=== PATIENT | male | born 1960 | race Caucasian/White ===

== ENCOUNTER 2017-08-10 07:28 | Day surgery (SDC) | payer OTHER ==
[~2017-08-10 07:28] MED LIST: Lactated Ringers 1,000 ML IV SCH
[2017-08-10] MEDS ORDERED: Propofol 200 MG/20 ML SDV ONE (07:55)
--- NOTE | 2017-08-10 08:43 | PCM.PREANE ---
Preanesthetic Assessment - Anesthesia/Transfusion/Family Hx Anesthesia History: Prior Anesthesia Without Reaction Family History of Anesthesia Reaction: No Transfusion History: No Prior Transfusion(s) Intubation History: Unknown - Review of Systems General: No Symptoms Pulmonary: No Symptoms Cardiovascular: No Symptoms Gastrointestinal: No Symptoms, Other (screening colonoscopy) Neurological: No Symptoms Other: Reports: None - Physical Assessment NPO Status Date: 08/08/17 NPO Status Time: 22:00 O2 Sat by Pulse Oximetry: 95 Respiratory Rate: 16 Vital Signs: Last Vital Signs Temp 36.1 C 08/10/17 07:45 Pulse 76 08/10/17 07:45 Resp 16 08/10/17 07:45 BP 134/71 08/10/17 07:45 Pulse Ox 95 08/10/17 07:45 Height: 1.91 m Weight: 158.757 kg ASA Class: 3 Mental Status: Alert & Oriented x3 Airway Class: Mallampati = 2 Dentition: Reports: Normal Dentition, Missing Tooth/Teeth (upper and lower ( multiple) both sides) Thyro-Mental Finger Breadths: 3 Mouth Opening Finger Breadths: 3 ROM/Head Extension: Full Lungs: Clear to Auscultation, Normal Respiratory Effort Cardiovascular: Regular Rate, Regular Rhythm - Lab Values: Laboratory Last Values POC Glucose 120 mg/dL (60-110) H 08/10/17 07:52 - Allergies Allergies/Adverse Reactions: Allergies Allergy/AdvReac Type Severity Reaction Status Date / Time No Known Allergies Allergy Verified 08/06/17 14:25 - Blood Blood Available: No - Anesthesia Plan Pre-Op Medication Ordered: None - Acknowledgements Anesthesia Type Planned: MAC Pt an Appropriate Candidate for the Planned Anesthesia: Yes Alternatives and Risks of Anesthesia Discussed w Pt/Guardian: Yes Pt/Guardian Understands and Agrees with Anesthesia Plan: Yes PreAnesthesia Questionnaire HEENT History: Reports: Other (See Below) Other HEENT History: wears glasses Cardiovascular History: Reports: High Cholesterol, Hypertension Respiratory History: Reports: Sleep Apnea Other Respiratory History: uses CPAP Musculoskeletal History: Reports: Arthritis Endocrine/Metabolic History: Reports: Diabetes, Type II, Obesity/BMI 30+ ( morbid obesity BMI 43.7) Dermatologic History: Reports: Other (See Below) Other Dermatologic History: dermatitis to hands - Past Surgical History Head Surgeries/Procedures: Reports: None HEENT Surgical History: Reports: Adenoidectomy, Tonsillectomy - SUBSTANCE USE Smoking Status *Q: Former Smoker Tobacco Use Within Last Twelve Months: No Recreational Drug Use History: No - HOME MEDS Home Medications: Home Meds Chlorthalidone 25 mg PO DAILY 08/06/17 [History] Lisinopril 20 mg PO DAILY 08/06/17 [History] Simvastatin 40 mg PO BEDTIME 08/06/17 [History] metFORMIN HCl [Metformin HCl] 1,000 mg PO BID 08/06/17 [History] - CURRENT (IN HOUSE) MEDS Current Meds: Current Medications Lactated Ringer's (Ringers, Lactated) 1,000 mls @ 125 mls/hr IV ASDIRECTED ANGELIC Last Admin: 08/10/17 08:03 Dose: 125 mls/hr Discontinued Medications Lidocaine HCl (Xylocaine-Mpf 1%) Confirm Administered Dose 5 ml .ROUTE .STK-MED ONE Stop: 08/10/17 07:58 Propofol (Diprivan 20 Ml) Confirm Administered Dose 400 mg .ROUTE .STK-MED ONE Stop: 08/10/17 07:56
--- NOTE | 2017-08-10 10:34 | PCM.OPNOTE ---
- General Post-Op/Procedure Note Date of Surgery/Procedure: 08/10/17 Operative Procedure(s): colonoscopy w snare polypectomy Findings: see dict [id number] Pre Op Diagnosis: scrn colonoscopy Post-Op Diagnosis: polyps and diverticulosis Anesthesia Technique: Moderate Sedation Primary Surgeon: Angel Garcia Pathology: 2mm sessile polyp at dist 1.4m when went in and 1.5 cm sessile polyp at dist 20 cm when went out Complications: None Condition: Good
--- NOTE | 2017-08-10 11:00 | PCM48HPAN ---
Post Anesthesia Note - EVALUATION WITHIN 48HRS OF ANESTHETIC Vital Signs in Normal Range: Yes Patient Participated in Evaluation: Yes Respiratory Function Stable: Yes Airway Patent: Yes Cardiovascular Function Stable: Yes Hydration Status Stable: Yes Pain Control Satisfactory: Yes Nausea and Vomiting Control Satisfactory: Yes Mental Status Recovered: Yes Resp Rate: 22 - COMMENTS/OBSERVATIONS Free Text/Narrative:: no anesthesia problems
--- NOTE | 2017-08-10 12:28 | OR ---
SURGEON: Angel Garcia MD DATE OF PROCEDURE: 08/10/2017 PREOPERATIVE DIAGNOSIS: Screening colonoscopy. POSTOPERATIVE DIAGNOSES: 1. Polyps. 2. Diverticulosis. PROCEDURE PERFORMED: Colonoscopy. The patient was taken to the endoscopy room. A time out was called, patient identified, and procedure identified. Diprivan was then administrated. Patient went from awake to sleep, hearing doctor talking or door closing is normal. Perineum inspection and digital examination were then performed. A well- lubricated colonoscope was gently inserted through the rectum, advanced past the rectosigmoid junction, the descending colon, splenic flexure, transverse colon, hepatic flexure, ascending colon, arrived to the cecum. Cecum was identified as dictated in the finding. Then the scope was carefully withdrawn while attention was paid to the mucosal surface for any abnormality. Air will be sucked out during the scope withdrawal. At the rectum, retroflexed to examine any rectal diseases, fistula or hemorrhoids. During mucosal examination, abnormality or polyp encountered. Using snare equipment, the abnormality or the polyp was then snared off using electrocautery. The Patient tolerated procedure well. There were no intraoperative complications, and Dr. Garcia was present through out the whole procedure. FINDINGS: 1. The patient is easily sedated with FRONT END UI DEVELOPER and Diprivan. The patient is soundly snoring. 2. Bowel prep is left to be desirable. Large amount of opaque, semi opaque liquid stool. There is no semi-formed stool and required constant irrigation. This compromised the study because of the bowel prep. The patient's colon is rather straight forward. Cecum indicated by ileocecal fold, one-to-one indentation, light emittance, and appendiceal orifice. Mucosa examined upon scope pulling out with constant irrigation because of the poor bowel prep and this is a compromised study. The patient has a polyp at distant 1.4 meter when the scope go in and somewhat larger polyp, sessile at distance 20 cm when the scope come out and second was removed with snare polypectomy. The patient also has moderate diverticulosis on the left colon and no signs or symptoms of diverticulitis. No other mass, growth, inflammation, stricture, ulceration, bleeding, or AV malformation; none of those. The patient has some internal hemorrhoids. No external hemorrhoids. The patient would benefit from repeat colonoscopy 1.5 years from today 18 months because of the polyp and as well as the bowel prep. The patient is to do a better of bowel prep. We will address this on the followup visit. KARTIK RIGGS /[id number]
== END 2017-08-10 11:00 | disposition home or self-care (01) ==
LOC: MW.SDS 07:28
PROVIDERS: ATTEND Surgery
DX: Z12.11 Encounter for screening for malignant neoplasm of colon (principal); K64.8 Other hemorrhoids; D12.2 Benign neoplasm of ascending colon; D12.6 Benign neoplasm of colon, unspecified; K57.30 Diverticulosis of large intestine without perforation or abscess without bleeding; E78.00 Pure hypercholesterolemia, unspecified; I10 Essential (primary) hypertension; G47.30 Sleep apnea, unspecified; E11.9 Type 2 diabetes mellitus without complications; M19.90 Unspecified osteoarthritis, unspecified site; E66.01 Morbid (severe) obesity due to excess calories; Z68.41 Body mass index [BMI] 40.0-44.9, adult; Z79.84 Long term (current) use of oral hypoglycemic drugs; Z79.899 Other long term (current) drug therapy; Z87.891 Personal history of nicotine dependence; Z98.890 Other specified postprocedural states
CPT/HCPCS: 45385; 82962; J7120; 00812; 88305; J2704

== ENCOUNTER 2017-11-12 03:44 | Emergency (ER) | payer OTHER ==
[2017-11-12] MEDS ORDERED: Sodium Chloride 0.9% 10 ML Syringe FLUSH PRN (04:02)
[2017-11-12] MEDS ORDERED: Sodium Chloride 0.9% 2.5 ML Syringe FLUSH PRN ×2 (04:02)
--- NOTE | 2017-11-12 04:06 | EDM.PDOC ---
ED HPI GENERAL MEDICAL PROBLEM - General Chief Complaint: General Stated Complaint: FELL OFF WORK TRUCK Time Seen by Provider: 11/12/17 03:48 Source of Information: Reports: Patient History Limitations: Reports: Altered Mental Status - History of Present Illness INITIAL COMMENTS - FREE TEXT/NARRATIVE: HISTORY AND PHYSICAL: History of present illness: 57-year-old male brought to emergency department after fall at work with suspected loss of consciousness with past medical history of proximal A. fib on Eliquis, hypertension, and type 2 diabetes Patient states that the last thing he remembers was checking the oil in his vehicle. He does not know what actually happened to him. His coworker states that he received a text from him as well as a call so proceeded to check on him. When he found him he was standing between 2 vehicles holding himself up. He noted that patient was confused. Patient doesn't remember falling but states he was feeling his normal self prior to event. Denies any chest pain preceding or after the event. Currently he has pain in the back of his head, left elbow, left knee, and right shoulder. Patient believes that he may have been stepping into his vehicle when he lost his loss balance and fell backwards. Patient denies ever getting on his vehicle or possibility from falling from a significant height. Patient states he was in the hospital 2 months ago in [place]. He was initially unable to remember what he was there for. Approximately 15 minutes after asking states that he was there fir A. fib and placed on a blood thinner. He does have his medications on his phone and he is on Eliquis, Metoprolol, Lasix, and Metformin. Patient initially was only oriented to person but not place or time. He does not remember the event or how long he could've been unconscious. Currently denies any chest pain, palpitations, shortness of breath, or focal neurologic deficits. Initial neurological exam is benign, cranial nerves II through XII are intact, no facial drooping, no decrease in strength in all muscle groups, no sensory deficits Alert and oriented 1 GCS-14 Initial bedside blood sugar 117 Initial EKG normal sinus rhythm with a rate of [address] changes Initial exam shows a small superficial abrasion above the right eye, small superficial abrasion above the left elbow, there is a 5 x 3 cm abrasion to the left medial aspect of the knee, there is a 1 cm x 2 cm abrasion to the left occiput with surrounding swelling. Patient is complaining of pain in his right shoulder, no decreased range of motion, strength, or sensation. Also having some pain in the left elbow at abrasion site and left knee and abrasion site 0442- CBC, CMP, INR, Lipase, Troponin unremarkable. D-dimer elevated to 0.99. Secondary leg pain CTA ordered. 0530- Memory improved remembers slipping when trying to get into his truck and scraping his left knee against the step as he fell backward. Does think he lost conciousness 0550- [facility] radiologist called to inform that patient has a 4 mm subdural hematoma in right parafacine as well as a subarachnoid hemorrhage. 0550- Neuro monitoring as per nursing normal, 0555- Dr. Cedillo, [facility], advised of patient and will accept. Annette only able to accept Trauma, [place], and stroke secondary to hospital at [facility]. Review of systems: As per history of present illness and below otherwise all systems reviewed and negative. Past medical history: As per history of present illness and as reviewed below otherwise noncontributory. Surgical history: As per history of present illness and as reviewed below otherwise noncontributory. Social history: No reported history of drug or alcohol abuse. Family history: As per history of present illness and as reviewed below otherwise noncontributory. Physical exam: HEENT: See above for exam of head, normocephalic, pupils reactive, negative for conjunctival pallor or scleral icterus, mucous membranes moist, throat clear, neck supple, nontender, trachea midline. Lungs: Clear to auscultation, breath sounds equal bilaterally, chest nontender. Heart: S1S2, regular, negative for clicks, rubs, or JVD. Abdomen: Soft, nondistended, nontender. There is a reducible umbilical hernia. Negative for masses or hepatosplenomegaly. Negative for costovertebral tenderness. Pelvis: Stable nontender. Genitourinary: Deferred. Rectal: Deferred. Extremities: Atraumatic, negative for cords or calf pain. Neurovascular unremarkable. Neuro: Awake, alert, oriented. Cranial nerves II through XII unremarkable. Cerebellum unremarkable. Motor and sensory unremarkable throughout. Exam nonfocal. Diagnostics: CBC, CMP, troponin, INR, d-dimer, chest x-ray, EKG, CT head neck, right shoulder x-ray, left elbow x-ray, left knee x-ray Therapeutics: 1 L normal saline 1 Impression: Unwitnessed Fall with trauma to the head from a standing position Loss of consciousness Short-term memory loss Plan: Please see above CBC, CMP, troponin, INR were all unremarkable. CT head did reveal a right parafalcine subdural hematoma measuring up to 4 mm. There was also subdural blood layering along the left side of the tentorium as well as high left convexity subarachnoid hemorrhage. Dr. Cedillo, [facility], was advised of the patient and was also told that the patient is on blood thinner Eliquist for his proximal A. fib. As per above patient's memory did improve and at time of transfer patient's GCS was 15 and patient was alert and oriented 3. No neurologic deficits were noted on exam. head area Pain Score (Numeric/FACES): 5 - Related Data Allergies Allergy/AdvReac Type Severity Reaction Status Date / Time No Known Allergies Allergy Verified 11/12/17 03:57 Home Meds: Home Meds Simvastatin 40 mg PO BEDTIME 08/06/17 [History] metFORMIN HCl [Metformin HCl] 1,000 mg PO BID 08/06/17 [History] Apixaban [Eliquis] 5 mg PO BID 11/12/17 [History] Aspirin 81 mg PO DAILY 11/12/17 [History] Cholecalciferol (Vitamin D3) [D3-2000] 1 tab PO DAILY 11/12/17 [History] Furosemide [Lasix] 20 mg PO DAILY 11/12/17 [History] Magnesium Oxide 1 tab PO DAILY 11/12/17 [History] Metoprolol Tartrate 1 tab PO BID 11/12/17 [History] Past Medical History HEENT History: Reports: Other (See Below) Other HEENT History: wears glasses Cardiovascular History: Reports: High Cholesterol, Hypertension Respiratory History: Reports: Sleep Apnea Other Respiratory History: uses CPAP Musculoskeletal History: Reports: Arthritis Endocrine/Metabolic History: Reports: Diabetes, Type II, Obesity/BMI 30+ ( morbid obesity BMI 43.7) Dermatologic History: Reports: Other (See Below) Other Dermatologic History: dermatitis to hands - Past Surgical History Head Surgeries/Procedures: Reports: None HEENT Surgical History: Reports: Adenoidectomy, Tonsillectomy ED ROS GENERAL - Review of Systems Review Of Systems: ROS reveals no pertinent complaints other than HPI. ED EXAM, GENERAL - Physical Exam Exam: See Below Course - Vital Signs Last Recorded V/S: Last Vital Signs Temp 97 F 11/12/17 03:50 Pulse 72 11/12/17 03:50 Resp 18 11/12/17 03:50 BP 172/77 H 11/12/17 03:50 Pulse Ox 98 11/12/17 04:14 - Orders/Labs/Meds Orders: Active Orders 24 hr Category Date Time Status Cardiac Monitoring [RC] . DIRECTED Care 11/12/17 04:02 Active EKG Documentation Completion [RC] STAT Care 11/12/17 04:03 Active Oxygen Therapy [RC] ASDIRECTED Care 11/12/17 04:02 Active Pulse Oximetry [RC] ASDIRECTED Care 11/12/17 04:02 Active Cervical Spine wo Cont [CT] Stat Exams 11/12/17 04:06 Taken Chest 1V Frontal [CR] Stat Exams 11/12/17 04:02 Taken Chest w Cont [CT] Stat Exams 11/12/17 04:43 Taken Elbow 2V Lt [CR] Stat Exams 11/12/17 04:13 Taken Head wo Cont [CT] Stat Exams 11/12/17 04:06 Taken Knee 3V Lt [CR] Stat Exams 11/12/17 04:07 Taken Shoulder Comp Rt [CR] Stat Exams 11/12/17 04:07 Taken UA W/MICROSCOPIC [URIN] Stat Lab 11/12/17 04:03 Ordered Sodium Chloride 0.9% [Normal Saline] 1,000 ml Med 11/12/17 05:50 Ordered IV STAT Sodium Chloride 0.9% [Saline Flush] Med 11/12/17 04:02 Active 10 ml FLUSH ASDIRECTED PRN Sodium Chloride 0.9% [Saline Flush] Med 11/12/17 04:02 Active 2.5 ml FLUSH ASDIRECTED PRN Sodium Chloride 0.9% [Saline Flush] Med 11/12/17 04:02 Active 2.5 ml FLUSH ASDIRECTED PRN Saline Lock Insert [OM.PC] Stat Oth 11/12/17 04:02 Ordered Medication Orders Sodium Chloride (Normal Saline) 1,000 mls @ 999 mls/hr IV STAT ONE Stop: 11/12/17 06:50 Sodium Chloride (Saline Flush) 2.5 ml FLUSH ASDIRECTED PRN PRN Reason: Keep Vein Open Sodium Chloride (Saline Flush) 10 ml FLUSH ASDIRECTED PRN PRN Reason: Keep Vein Open Sodium Chloride (Saline Flush) 2.5 ml FLUSH ASDIRECTED PRN PRN Reason: Keep Vein Open Labs: Laboratory Tests 11/12/17 11/12/17 11/12/17 Range/Units 04:00 04:00 04:00 WBC 8.96 (4.0-11.0) K/uL RBC 4.59 (4.50-5.90) M/uL Hgb 13.8 (13.0-17.0) g/dL Hct 41.8 (38.0-50.0) % MCV 91.1 (80.0-98.0) fL MCH 30.1 (27.0-32.0) pg MCHC 33.0 (31.0-37.0) g/dL RDW Std Deviation 49.0 (28.0-62.0) fl RDW Coeff of Esther 15 (11.0-15.0) % Plt Count 251 (150-400) K/uL MPV 10.70 (7.40-12.00) fL Neut % (Auto) 74.0 (48.0-80.0) % Lymph % (Auto) 15.4 L (16.0-40.0) % [place] % (Auto) 8.8 (0.0-15.0) % Eos % (Auto) 1.6 (0.0-7.0) % Baso % (Auto) 0.2 (0.0-1.5) % Neut # (Auto) 6.6 H (1.4-5.7) K/uL Lymph # (Auto) 1.4 (0.6-2.4) K/uL [place] # (Auto) 0.8 (0.0-0.8) K/uL Eos # (Auto) 0.1 (0.0-0.7) K/uL Baso # (Auto) 0.0 (0.0-0.1) K/uL Nucleated RBC % 0.0 /100WBC Nucleated RBCs # 0 K/uL INR 1.01 D-Dimer, Quantitative 0.99 H (0.0-0.52) mg/LFEU Sodium 141 (136-148) mmol/L Potassium 3.9 (3.5-5.1) mmol/L Chloride 105 (98-107) mmol/L Carbon Dioxide 30.1 (21.0-32.0) mmol/L BUN 19 H (7.0-18.0) mg/dL Creatinine 1.2 (0.8-1.3) mg/dL Est Cr Clr Drug Dosing 81.17 mL/min Estimated GFR (MDRD) > 60.0 ml/min Glucose 122 H (74-106) mg/dL Calcium 8.5 (8.5-10.1) mg/dL Total Bilirubin 0.3 (0.2-1.0) mg/dL AST 34 (15-37) IU/L ALT 48 (14-63) IU/L Alkaline Phosphatase 65 (46-116) U/L Troponin I < 0.050 (0.000-0.056) ng/mL Total Protein 6.5 (6.4-8.2) g/dL Albumin 3.4 (3.4-5.0) g/dL Globulin 3.1 (2.0-3.5) g/dL Albumin/Globulin Ratio 1.1 L (1.3-2.8) Lipase 139 (73-393) U/L Meds: Medications Generic Name Dose Route Start Last Admin Trade Name Freq PRN Reason Stop Dose Admin Sodium Chloride 1,000 mls @ 999 mls/hr 11/12/17 05:50 Normal Saline IV 11/12/17 06:50 STAT ONE Sodium Chloride 2.5 ml 11/12/17 04:02 Saline Flush FLUSH ASDIRECTED PRN Keep Vein Open Sodium Chloride 10 ml 11/12/17 04:02 Saline Flush FLUSH ASDIRECTED PRN Keep Vein Open Sodium Chloride 2.5 ml 11/12/17 04:02 Saline Flush FLUSH ASDIRECTED PRN Keep Vein Open Discontinued Medications Generic Name Dose Route Start Last Admin Trade Name Freq PRN Reason Stop Dose Admin Iopamidol 50 ml 11/12/17 05:46 11/12/17 05:47 Isovue Multipack-370 (76%) IVPUSH 11/12/17 05:47 50 ml ONETIME STA Administration Departure - Departure Time of Disposition: 06:08 Disposition: DC/Tfer to Other 70 Condition: Fair Clinical Impression: Subarachnoid hemorrhage after traumatic injury without open intracranial wound , with prolonged loss of consciousness and return to pre-existing level of consciousness, Chronic anticoagulation Subdural hematoma, post-traumatic Qualifiers: Encounter type: initial encounter Loss of consciousness presence/duration: with LOC of unspecified duration Qualified Code(s): S06.5X9A - Traumatic subdural hemorrhage with loss of consciousness of unspecified duration, initial encounter - Discharge Information Referrals: PCP,None [Primary Care Provider] - Forms: ED Department Discharge - My Orders Last 24 Hours: My Active Orders 11/12/17 04:02 Cardiac Monitoring [RC] . DIRECTED Oxygen Therapy [RC] ASDIRECTED Pulse Oximetry [RC] ASDIRECTED Chest 1V Frontal [CR] Stat Sodium Chloride 0.9% [Saline Flush] 10 ml FLUSH ASDIRECTED PRN Sodium Chloride 0.9% [Saline Flush] 2.5 ml FLUSH ASDIRECTED PRN Sodium Chloride 0.9% [Saline Flush] 2.5 ml FLUSH ASDIRECTED PRN Saline Lock Insert [OM.PC] Stat 11/12/17 04:03 EKG Documentation Completion [RC] STAT UA W/MICROSCOPIC [URIN] Stat 11/12/17 04:06 Cervical Spine wo Cont [CT] Stat Head wo Cont [CT] Stat 11/12/17 04:07 Knee 3V Lt [CR] Stat Shoulder Comp Rt [CR] Stat 11/12/17 04:13 Elbow 2V Lt [CR] Stat 11/12/17 04:43 Chest w Cont [CT] Stat 11/12/17 05:50 Sodium Chloride 0.9% [Normal Saline] 1,000 ml IV STAT - Assessment/Plan Last 24 Hours: My Active Orders 11/12/17 04:02 Cardiac Monitoring [RC] . DIRECTED Oxygen Therapy [RC] ASDIRECTED Pulse Oximetry [RC] ASDIRECTED Chest 1V Frontal [CR] Stat Sodium Chloride 0.9% [Saline Flush] 10 ml FLUSH ASDIRECTED PRN Sodium Chloride 0.9% [Saline Flush] 2.5 ml FLUSH ASDIRECTED PRN Sodium Chloride 0.9% [Saline Flush] 2.5 ml FLUSH ASDIRECTED PRN Saline Lock Insert [OM.PC] Stat 11/12/17 04:03 EKG Documentation Completion [RC] STAT UA W/MICROSCOPIC [URIN] Stat 11/12/17 04:06 Cervical Spine wo Cont [CT] Stat Head wo Cont [CT] Stat 11/12/17 04:07 Knee 3V Lt [CR] Stat Shoulder Comp Rt [CR] Stat 11/12/17 04:13 Elbow 2V Lt [CR] Stat 11/12/17 04:43 Chest w Cont [CT] Stat 11/12/17 05:50 Sodium Chloride 0.9% [Normal Saline] 1,000 ml IV STAT
[2017-11-12 04:34] LABS: CHLORIDE,CL 105 mmol/L (98-107); SODIUM,NA 141 mmol/L (136-148)
[2017-11-12] MEDS ORDERED: Iopamidol 755 MG/ML 500 ML Multipack Bottle IVPUSH STA (05:46)
[2017-11-12] MEDS ORDERED: Sodium Chloride 0.9% 1,000 ML IV ONE (05:50)
[2017-11-12] MEDS ORDERED: HYDROmorphone 1 MG/ML Syringe IVPUSH ONE (06:53)
--- NOTE | 2017-11-12 19:16 | CR ---
EXAM DATE: 11/12/17 PATIENT'S AGE: 57 Patient: TIMOTHY VINCENT Facility: [place], [place] Site . Site : 1960 Study: XRay Chest [id number]/2/2018 5:25:55 AM Ordering Physician: Jt Chairez Final Report: INDICATION: trauma TECHNIQUE: Chest 1 view. COMPARISON: None. FINDINGS: Cardiovascular and mediastinum: Heart size and vasculature are normal in caliber and appearance. Mediastinum is within normal limits. Lungs and pleural space: Lungs are clear. No sign of infiltrate or mass. No sign of pleural effusion. No pneumothorax. Bones and soft tissues: No significant findings. IMPRESSION: Unremarkable chest. Dictated by: Lalo He MD @ 11/12/2017 05:30:35 (Electronic Signature) Report Signed by Proxy. [facility]
--- NOTE | 2017-11-12 19:17 | CR ---
EXAM DATE: 11/12/17 PATIENT'S AGE: 57 Patient: TIMOTHY VINCENT Facility: [place], [place] Site . Site : 1960 Study: XRay Shoulder Right [id number]/2/2018 5:26:19 AM Ordering Physician: Jt Chairez Final Report: INDICATION: Trauma TECHNIQUE: Three views right shoulder COMPARISON: None. FINDINGS: Bones: Alignment is normal. No fractures or bone lesions. Joint spaces: Degenerative changes AC joint. Soft tissues: Unremarkable. IMPRESSION: No evidence of acute trauma. Dictated by Lalo He MD @ 11/12/2017 5:35:04 AM Dictated by: Lalo He MD @ 11/12/2017 05:35:10 (Electronic Signature) Report Signed by Proxy. SHIMA
--- NOTE | 2017-11-12 19:17 | CR ---
EXAM DATE: 11/12/17 PATIENT'S AGE: 57 Patient: TIMOTHY VINCENT Facility: [place], [place] Site . Site : 1960 Study: XRay Extremity Left [id number]/2/2018 5:26:48 AM Ordering Physician: Jt Chairez Final Report: INDICATION: Trauma TECHNIQUE: Two views left elbow. COMPARISON: None FINDINGS: Bones: Alignment is normal. No fractures or bone lesions. Joint spaces: Unremarkable. Soft tissues: Soft tissue edematous changes posterior to the distal humerus. IMPRESSION: Soft tissue edematous changes posterior to the distal humerus. No fractures. Dictated by Lalo He MD @ 11/12/2017 5:37:40 AM Dictated by: Lalo He MD @ 11/12/2017 05:37:46 (Electronic Signature) Report Signed by Proxy. [facility]
--- NOTE | 2017-11-12 19:18 | CR ---
EXAM DATE: 11/12/17 PATIENT'S AGE: 57 Patient: TIMOTHY VINCENT Facility: [place], [place] Site . Site : 1960 Study: XRay Knee Left [id number]/2/2018 5:27:11 AM Ordering Physician: tJ Chairez Final Report: INDICATION: Trauma TECHNIQUE: Three views left knee COMPARISON: None FINDINGS: Bones: Alignment is normal. No fractures or bone lesions. Joint spaces: Unremarkable. Soft tissues: Areas of calcification/ossification adjacent to the proximal fibula. IMPRESSION: No evidence of acute trauma. Dictated by Lalo He MD @ 11/12/2017 5:36:35 AM Dictated by: Lalo He MD @ 11/12/2017 05:36:41 (Electronic Signature) Report Signed by Proxy. [facility]
--- NOTE | 2017-11-12 19:19 | CT ---
EXAM DATE: 11/12/17 PATIENT'S AGE: 57 Patient: TIMOTHY VINCENT Facility: [place], [place] Site . Site : 1960 Study: CT Head [id number]/2/2018 5:43:41 AM Ordering Physician: Jt Chairez Final Report: INDICATION: Brenda TECHNIQUE: CT head without contrast. COMPARISON: None FINDINGS: CSF spaces: Within normal limits for age. Brain parenchyma: Right parafalcine subdural hematoma measuring up to 4 millimeters. Left high convexity subarachnoid hemorrhage. Was also noted to layer on the left side of the tentorium. Skull base and calvarium: The visualized paranasal sinuses and mastoid air cells demonstrate no acute or significant findings. The visualized orbits are grossly unremarkable. No skull fractures. Right posterior parietal scalp hematoma. IMPRESSION: Right parafalcine subdural hematoma measuring up to 4 millimeters. Subdural blood layering along left side of the tentorium. High left convexity subarachnoid hemorrhage. Left posterior parietal scalp hematoma. Findings discussed on 11/12/2017 at 5:48 a.m. with . Dictated by Lalo He MD @ 11/12/2017 5:50:12 AM Dictated by: Lalo He MD @ 11/12/2017 05:50:16 (Electronic Signature) Report Signed by Proxy. [facility]
--- NOTE | 2017-11-12 19:20 | CT ---
EXAM DATE: 11/12/17 PATIENT'S AGE: 57 Patient: TIMOTHY VINCENT Facility: [place], [place] Site . Site : 1960 Study: CT Spine Cervical [id number]/2/2018 5:44:02 AM Ordering Physician: Jt Chairez Final Report: INDICATION: Trauma TECHNIQUE: CT cervical spine without contrast. COMPARISON: None FINDINGS: Vertebral alignment: Alignment is normal. Vertebrae: There are no fractures or suspicious bony lesions. Discs and facet joints: Disc spaces and facets are within normal limits. Extraspinal findings: Prevertebral soft tissues, visualized airway, and visualized lungs are unremarkable. IMPRESSION: No evidence of acute cervical spine trauma Dictated by Lalo He MD @ 11/12/2017 5:51:58 AM Dictated by: Lalo He MD @ 11/12/2017 05:52:11 (Electronic Signature) Report Signed by Proxy. SHIMA
--- NOTE | 2017-11-12 19:21 | CT ---
EXAM DATE: 11/12/17 PATIENT'S AGE: 57 Patient: TIMOTHY VINCENT Facility: [place], [place] Site . Site : 1960 Study: CT Chest [id number]/2/2018 5:48:38 AM Ordering Physician: Jt Chairez Final Report: INDICATION: Trauma, positive D-dimer TECHNIQUE: CT chest was acquired with IV contrast. 50 cc Isovue 370 COMPARISON: FINDINGS: Cardiovascular structures: Heart size is normal. Thoracic aorta and main pulmonary artery are normal in caliber. Mediastinum and antonia: No mass or adenopathy. Lungs: Patchy left lower lobe opacities. Serial the findings may represent atelectasis, in the right clinical setting pneumonia may be considered. Pleura and pericardium: No effusions. Chest wall and axilla: No mass or adenopathy. Bones: No significant findings. Upper abdomen: Unremarkable. IMPRESSION: No evidence of acute chest trauma. No obvious pulmonary emboli. Patchy left lower lobe airspace opacity most likely representing atelectasis although the right clinical setting pneumonia may be considered. Dictated by Lalo He MD @ 11/12/2017 6:01:04 AM Dictated by: Lalo He MD @ 11/12/2017 06:01:16 (Electronic Signature) Report Signed by Proxy. SHIMA
== END 2017-11-12 07:05 | disposition other institution (70) ==
LOC: MW.ED 03:44
DX: S06.6X9A Traumatic subarachnoid hemorrhage with loss of consciousness of unspecified duration, initial encounter (principal); S06.5X9A Traumatic subdural hemorrhage with loss of consciousness of unspecified duration, initial encounter; R41.3 Other amnesia; Y99.0 Civilian activity done for income or pay; W18.39XA Other fall on same level, initial encounter; Z79.82 Long term (current) use of aspirin; Z79.899 Other long term (current) drug therapy; Z79.01 Long term (current) use of anticoagulants; E11.9 Type 2 diabetes mellitus without complications; I10 Essential (primary) hypertension; E78.00 Pure hypercholesterolemia, unspecified
CPT/HCPCS: 36415; 70450; 71045; 71260; 72125; 73030; 73070; 73562; 80053; 81001; 83690; 84484; 85025; 85379; 85610; 93005; 96361; 96374; 99285; J1170; J7040; Q9967